=== PATIENT | female | born 2000 | race Caucasian/White ===

== ENCOUNTER 2021-11-17 18:16 | Emergency (ER) | payer MEDICAID ==
[~2021-11-17] VITALS: Ht 157.5 cm; Wt 42.6 kg
[2021-11-17] MEDS ORDERED: CETI-90 PO (18:37)
[2021-11-17] MEDS ORDERED: SKIN CREAM TOP (18:37)
[2021-11-17] MEDS ORDERED: ANTI HISTAMINE PO (18:37)
--- NOTE | 2021-11-17 18:37 | NUR ---
Patient can not recall the exact names and dosages of her home medicines.
--- NOTE | 2021-11-17 18:45 | NUR ---
PATIENT WAS SEEN IN ED YESTERDAY AND RETURN FOR STEROID INJECTIONS FOR 7 DAYS.SHE WAS SEEN BY DR. OLIVIER WHO EDUCATED HER REGARDING DECADRON. SCALY RISH AROUND LIPS AND LIPS SLIGHTLY SWOLLEN PER PT ECZEMA HX AND FLARE.
--- NOTE | 2021-11-17 18:46 | NUR ---
Nursing SBAR given to registry nurse Guillermina.
[2021-11-17] MEDS ORDERED: PRED20TA PO (19:20)
[2021-11-17] MEDS ORDERED: DIPH25TA62 PO (19:20)
[2021-11-17] MEDS ORDERED: HYDR453.4 TP (19:20)
--- NOTE | 2021-11-17 19:30 | NUR ---
DISCUSSED AND GIVE PT DISCHARGE INSTRUCTIONS AND F/U APPT WITH PCP AND PT VERBALIZED UNDERSTANDING.
== END 2021-11-17 19:30 | disposition home or self-care (01) ==
LOC: ER 18:16
DX: L30.9 Dermatitis, unspecified (principal)
CPT/HCPCS: A4663

== ENCOUNTER → 2021-11-17 | Emergency (ER) | payer SELFPAY ==
[~2021-11-17] VITALS: Ht 165.1 cm; Wt 42.6 kg
[~2021-11-17] MED LIST: ANTI HISTAMINE PO; CETI-90 PO; DEXAMETHASONE SOD PHOSPHATE 10 MG INJ ONE; DEXAMETHASONE SOD PHOSPHATE 4 MG INJ IM ONE; DIPH25TA62 PO; HYDR453.4 TP; OFLO5DRO5 LEFT EAR; OXYC-128 PO; PRED20TA PO; SKIN CREAM TOP
--- NOTE | 2021-11-17 02:48 | NUR ---
Dr. Aguilar at bedside. MSE in progress.
--- NOTE | 2021-11-17 03:05 | NUR ---
Patient discharged to home with friend in stable condition. A/Ox4. NAD noted. Walked with a steady gait. Written and verbal after care instructions given. All belongings with patient. Patient verbalizes understanding of instructions. Stressed follow up or return to ER for worsening s/s.
[2021-11-17 03:11] VITALS: BP 110/71
== END | disposition home or self-care (01) ==
LOC: ER 03:15
DX: L30.9 Dermatitis, unspecified (principal); R60.0 Localized edema; Z91.011 Allergy to milk products
CPT/HCPCS: 99283; 96372; J1100; A4663

== ENCOUNTER 2022-01-05 03:01 | Emergency (ER) | payer MEDICAID ==
[~2022-01-05] VITALS: Ht 157.5 cm; Wt 42.6 kg
[~2022-01-05 03:01] MED LIST changes: -DEXAMETHASONE SOD PHOSPHATE 10 MG INJ ONE; -DEXAMETHASONE SOD PHOSPHATE 4 MG INJ IM ONE; -OFLO5DRO5 LEFT EAR; -OXYC-128 PO
--- NOTE | 2022-01-05 03:25 | NUR ---
Pt provided urine sample, sent to lab.
--- NOTE | 2022-01-05 03:26 | NUR ---
Dr. Dalton at bedside for MSE.
--- NOTE | 2022-01-05 03:36 | NUR ---
Dr. Dalton performed rectal exam, chapperoned by Luna VUdirector of quantitative research.
[2022-01-05 03:44] LABS: *BILIRUBIN,URIN NEGATIVE (NEGATIVE); *BLOOD, URINE NEGATIVE (NEGATIVE); *CLARITY,URINE CLEAR (CLEAR); *COLOR,URINE YELLOW (YELLOW); *KETONES,URINE TRACE (NEGATIVE); *UROBILINOGEN,URINE 0.2 E.U./dl (NORMAL); LEUKOCYTE ESTERASE ,URINE NEGATIVE (NEGATIVE); NITRITE, URINE NEGATIVE (NEGATIVE); UGLUCOSE NEGATIVE (NEGATIVE)
[2022-01-05 03:56] LABS: HEMATOCRIT 41.4 % (31.2-41.9); MEAN CORPUSCULAR HEMOGLOBIN 31.1 uug (24.7-32.8); MEAN CORPUSCULAR VOLUME 89.5 fL (75.5-95.3); PLATELET COUNT (AUTO) 291 K/uL (179-408)
[2022-01-05 04:06] LABS: CREATININE 0.8 mg/dL (0.6-1.3); POTASSIUM 3.6 mmol/L (3.5-5.1)
[2022-01-05 04:11] LABS: BACTERIA,URINE NONE SEEN /HPF (NONE SEEN); RBC,URINE 0-3 /HPF (0-3); SQUAMOUS EPITHELIAL CELL,UR FEW /HPF (NONE SEEN); WBC,URINE 0-3 /HPF (0-3)
[2022-01-05 04:15] LABS: *URINE HCG, QUAL NEGATIVE (NEGATIVE)
--- NOTE | 2022-01-05 04:20 | NUR ---
Xray at bedside.
--- NOTE | 2022-01-05 04:38 | NUR ---
Patient discharged to home in stable condition. Written and verbal after care instructions given. Patient verbalizes understanding of instructions. Stressed follow up or return to ER for worsening s/s. Pt out of ER with steady gait, no acute signs of distress, VSS, all belongings taken, provided with copies of lab results.
[2022-01-05 04:39] VITALS: BP 120/66
== END 2022-01-05 04:40 | disposition home or self-care (01) ==
LOC: ER 03:03
DX: R10.30 Lower abdominal pain, unspecified (principal); E83.42 Hypomagnesemia; Z91.011 Allergy to milk products; Z83.79 Family history of other diseases of the digestive system
CPT/HCPCS: 36415; 74018; 83735; 84703; 85025; A4663

== ENCOUNTER 2022-01-23 21:42 | Emergency (ER) | payer SELFPAY ==
[~2022-01-23] VITALS: Ht 157.5 cm; Wt 42.6 kg
[2022-01-23] MEDS ORDERED: OFLO5DRO5 LEFT EAR (22:30)
[2022-01-23] MEDS ORDERED: OXYC-128 PO (22:30)
--- NOTE | 2022-01-23 22:39 | NUR ---
Patient discharged to home in stable condition. Written and verbal after care instructions given. Patient verbalizes understanding of instructions. Stressed follow up or return to ER for worsening s/s.
== END 2022-01-23 22:39 | disposition home or self-care (01) ==
LOC: ER 21:42
DX: H60.92 Unspecified otitis externa, left ear (principal); F17.200 Nicotine dependence, unspecified, uncomplicated; Z91.011 Allergy to milk products
CPT/HCPCS: A4663

== ENCOUNTER 2022-02-03 19:44 | Emergency (ER) | payer SELFPAY ==
[~2022-02-03] VITALS: Ht 157.5 cm; Wt 42.6 kg
[~2022-02-03 19:44] MED LIST changes: +OFLO5DRO5 LEFT EAR; +OXYC-128 PO
--- NOTE | 2022-02-03 20:15 | NUR ---
A/O x4. NAD noted. Ambulatory with a steady gait.
--- NOTE | 2022-02-03 20:20 | NUR ---
Dr. Nieves at [facility]. MSE in progress.
[2022-02-03] MEDS ORDERED: PRED20TA PO ×2 (20:37→20:40)
[2022-02-03] MEDS ORDERED: DEXAMETHASONE SOD PHOSPHATE 10 MG INJ ONE (20:44)
[2022-02-03] MEDS ORDERED: DEXAMETHASONE SOD PHOSPHATE 4 MG INJ IM ONE (20:45)
--- NOTE | 2022-02-03 20:54 | NUR ---
Patient discharged to home in stable condition. A/O x 4. NAD noted. Ambulatory with a steady gait. All belongings with patient. Written and verbal after care instructions given. Patient verbalizes understanding of instructions. Stressed follow up or return to ER for worsening s/s.
[2022-02-03 20:55] VITALS: BP 108/66
== END 2022-02-03 20:55 | disposition home or self-care (01) ==
LOC: ER 19:48
DX: L30.9 Dermatitis, unspecified (principal)
CPT/HCPCS: 99283; 96372; J1100; A4663

== ENCOUNTER 2022-02-21 15:14 | Emergency (ER) | payer SELFPAY ==
[~2022-02-21] VITALS: Ht 157.5 cm; Wt 42.6 kg
[2022-02-21 16:30] VITALS: BP 102/74
--- NOTE | 2022-02-21 16:30 | NUR ---
PT SEEN AND EVALUATED BY DR HILLMAN.
== END 2022-02-21 16:31 | disposition home or self-care (01) ==
LOC: ER 15:14
DX: S09.22XA Traumatic rupture of left ear drum, initial encounter (principal); X58.XXXA Exposure to other specified factors, initial encounter; Y93.E8 Activity, other personal hygiene; Y92.89 Other specified places as the place of occurrence of the external cause; L30.9 Dermatitis, unspecified; Z91.011 Allergy to milk products
CPT/HCPCS: A4663

== ENCOUNTER 2022-06-13 23:40 | Emergency (ER) | payer OTHER ==
[~2022-06-13] VITALS: Ht 160 cm; Wt 49.9 kg
--- NOTE | 2022-06-13 23:59 | NUR ---
Dr. Torres in room examining pt.
[2022-06-14] MEDS ORDERED: CYCL10TA9 PO (00:08)
[2022-06-14] MEDS ORDERED: HYDR-4209 PO (00:08)
[2022-06-14] MEDS ORDERED: DEXAMETHASONE SOD PHOSPHATE 4 MG INJ ONE (00:13)
[2022-06-14] MEDS ORDERED: CYCLOBENZAPRINE HCL 10 MG TABLET ONE (00:13)
[2022-06-14] MEDS ORDERED: HYDROCODONE/APAP 5-325MG TABLET ONE (00:14)
[2022-06-14] MEDS ORDERED: DEXAMETHASONE SOD PHOSPHATE 4 MG INJ IM ONE (00:15)
[2022-06-14] MEDS ORDERED: HYDROCODONE/APAP 5-325MG TABLET PO ONE (00:15)
[2022-06-14] MEDS ORDERED: CYCLOBENZAPRINE HCL 10 MG TABLET PO ONE (00:15)
--- NOTE | 2022-06-14 00:26 | NUR ---
Patient discharged to home in stable condition. Written and verbal after care instructions given. Patient verbalizes understanding of instructions. Stressed follow up or return to ER for worsening s/s. Patient walked out with steady gait.
[2022-06-14 00:42] VITALS: BP 104/75
== END 2022-06-14 00:39 | disposition home or self-care (01) ==
LOC: ER 23:45
DX: M54.6 Pain in thoracic spine (principal); F17.210 Nicotine dependence, cigarettes, uncomplicated; Z79.899 Other long term (current) drug therapy; Z79.2 Long term (current) use of antibiotics
CPT/HCPCS: 99283; 96372; J1100; A4663

== ENCOUNTER 2022-09-27 11:02 | Emergency (ER) | payer OTHER ==
[~2022-09-27] VITALS: Ht 160 cm; Wt 44.0 kg
[~2022-09-27 11:02] MED LIST changes: +CYCL10TA9 PO; +HYDR-4209 PO
--- NOTE | 2022-09-27 11:34 | NUR ---
Pt seen by MD for bedside eval. Safety measures in place. Will continue to monitor.
[2022-09-27 11:57] LABS: *URINE HCG, QUAL NEGATIVE (NEGATIVE)
[2022-09-27] MEDS ORDERED: AMOX-430 PO (12:13)
[2022-09-27 12:23] VITALS: BP 118/75; TEMP 98.4; O2SAT 99
== END 2022-09-27 12:23 | disposition home or self-care (01) ==
LOC: ER 11:02
DX: H66.91 Otitis media, unspecified, right ear (principal); Z91.011 Allergy to milk products; Z79.2 Long term (current) use of antibiotics; Z79.899 Other long term (current) drug therapy
CPT/HCPCS: 84703; A4663

== ENCOUNTER 2022-09-30 06:09 | Emergency (ER) | payer OTHER ==
[~2022-09-30] VITALS: Ht 160 cm; Wt 44.0 kg
[~2022-09-30 06:09] MED LIST changes: +AMOX-430 PO
--- NOTE | 2022-09-30 06:43 | NUR ---
Dr. Elena at bedside for MSE.
[2022-09-30] MEDS ORDERED: DEXAMETHASONE SOD PHOSPHATE 4 MG INJ IM ONE (06:45)
[2022-09-30] MEDS ORDERED: DEXAMETHASONE SOD PHOSPHATE 10 MG INJ ONE (06:48)
[2022-09-30 06:56] VITALS: BP 113/64; O2SAT 100
== END 2022-09-30 06:56 | disposition home or self-care (01) ==
LOC: ER 06:09
DX: T78.3XXA Angioneurotic edema, initial encounter (principal); R59.1 Generalized enlarged lymph nodes; F17.210 Nicotine dependence, cigarettes, uncomplicated; Z79.2 Long term (current) use of antibiotics; Z79.899 Other long term (current) drug therapy
CPT/HCPCS: 99283; 96372; J1100; A4663

== ENCOUNTER 2023-03-08 10:17 | Emergency (ER) | payer SELFPAY ==
[~2023-03-08] VITALS: Ht 160 cm; Wt 43.5 kg
[2023-03-08 11:31] VITALS: O2SAT 99
[2023-03-08 12:34] LABS: BASOPHILS % (AUTO) 0.6 % (0.0-2.0); EOSINOPHILS # (AUTO) 0.1 K/uL (0.0-0.7); EOSINOPHILS % (AUTO) 0.9 % (0.0-7.0); HEMATOCRIT 42.7 % (31.2-41.9); HEMOGLOBIN 14.5 g/dL (10.9-14.3); LYMPHOCYTES # (AUTO) 2.9 K/uL (0.8-4.8); MEAN CORPUSCULAR HEMOGLOBIN 30.8 uug (24.7-32.8); MEAN CORPUSCULAR HGB CONC 34 g/dL (32.3-35.6); MEAN CORPUSCULAR VOLUME 90.9 fL (75.5-95.3); MONOCYTES # (AUTO) 0.5 K/uL (0.1-1.30); MONOCYTES % (AUTO) 6.7 % (0.0-11.0); NEUTROPHILS # (AUTO) 3.7 K/uL (1.8-8.9); NEUTROPHILS % (AUTO) 51.8 % (38.5-71.5); PLATELET COUNT (AUTO) 296 K/uL (179-408); RED CELL DISTRIBUTION WIDTH 13.6 % (12.3-17.7); WHITE BLOOD COUNT (AUTO) 7.2 K/uL (3.8-11.8)
[2023-03-08 12:46] LABS: CALCIUM 9.1 mg/dL (8.5-10.1); CARBON DIOXIDE 26 mmol/L (21-32); CHLORIDE 105 mmol/L (98-107); CREATININE 0.5 mg/dL (0.6-1.3); GLUCOSE 94 mg/dL (74-106); SODIUM SERUM 137 mmol/L (136-145); UREA NITROGEN, BLOOD 8 mg/dL (7-18)
[2023-03-08] MEDS ORDERED: ONDA4TAB5 PO (14:35)
[2023-03-08] MEDS ORDERED: ACET1TAB23 PO (14:35)
[2023-03-08 15:13] LABS: *BILIRUBIN,URIN NEGATIVE (NEGATIVE); *BLOOD, URINE NEGATIVE (NEGATIVE); *CLARITY,URINE CLEAR (CLEAR); *COLOR,URINE YELLOW (YELLOW); *KETONES,URINE NEGATIVE (NEGATIVE); *PROTEIN,URINE NEGATIVE (NEGATIVE); *UROBILINOGEN,URINE 0.2 E.U./dl (NORMAL); LEUKOCYTE ESTERASE ,URINE NEGATIVE (NEGATIVE); NITRITE, URINE NEGATIVE (NEGATIVE); PH,URINE 7.5 (5.0-8.0); UGLUCOSE NEGATIVE (NEGATIVE)
== END 2023-03-08 15:49 | disposition home or self-care (01) ==
LOC: ER 10:19
DX: S90.01XA Contusion of right ankle, initial encounter (principal); S09.8XXA Other specified injuries of head, initial encounter; R10.30 Lower abdominal pain, unspecified; F17.200 Nicotine dependence, unspecified, uncomplicated; Z79.899 Other long term (current) drug therapy; Z60.2 Problems related to living alone; Z91.018 Allergy to other foods; V09.9XXA Pedestrian injured in unspecified transport accident, initial encounter; Y93.89 Activity, other specified; Y92.89 Other specified places as the place of occurrence of the external cause; Y99.8 Other external cause status
CPT/HCPCS: 36415; 73600; 85025; A4606; A4663